=== PATIENT | female | born 1935 | race Caucasian/White ===

== ENCOUNTER 2018-06-23 09:30 | Outpatient (RCR) | payer MEDICARE, SELFPAY ==
--- NOTE | 2018-05-28 10:30 | PTTR_ITS ---
DATE: 05/28/18 SUBJECTIVE: Olga states that her back has been feeling much better. Has been ambulating in the house without use of her cane now. Did alot of walking while she was [place] last weekend. Is complaining of some swelling in the L calf with pain in L calf. The patient discontinued her press ups secondary to question whether this caused her calf symptoms OBJECTIVE: Upon re-check, the patient is noted to have significant swelling in the calf on the L. (-) redness or increased heat coming from the back of calf, or popliteal fossa region. Does have pain with heel cord stretch. Also discomfort with unilateral heel raise. (-) dural tension testing with SLR today. Ultrasound [id number]: Performed 3 mhz, continuous 1.0w/cm2 to the L piriformis, glut med 8 mins in prone followed by Manual therapy: (60169r5). PA mobilizations, rotational segmental mobilizations grades 3 and 4 from L1-L5 sacral decompression followed by soft tissue mobilization L lumbar paraspinals followed by Mulligan style SLR and manual distraction via leg pulls on the L. Told her to resume prone press ups as this is likely not causing the calf swelling. * x Electrical Stim Unattended - 02203: with cryotherapy to low back for 15 mins. Direct treatment time: 45 mins Total treatment time: 60 mins A: Questionable calf strain resulting in mild swelling in the calf. Does not appear to be a blood clot. She is taking baby aspirin. Symptoms likely stemming from increasing her walking activities. Will certainly need to continue monitoring this though for pain and increased edema. Overall she is moving through the clinic with less pain and less pain behaviors. Is able to ambulate to the treatment room without use of her cane. P: Continue as above. MM/dl
--- NOTE | 2018-05-31 15:44 | PTTR_ITS ---
DATE: 05/31/18 SUBJECTIVE: Olga continues to complain of left calf parathesias. Reports a significant reduction in buttock pain on the left, and feels as though P.T. has been quite beneficial. We discussed potentially having another injection at [facility]. OBJECTIVE: Manual therapy: (78928q4). Lumbopelvic mobilization using longitudinal leg distraction and Mulligan style SLR. PA mobilizations in prone as well as lumbopelvic mobilizations into hip flexion in right side lying. Then performed facet gapping techniques in modified QL stretch position. * [x] Electrical Stim Unattended - 61358b0: applied x15 minutes to the low back in right side lying. * [x] Ultrasound - (x [8] mins) - 64318d[1]: applied @1 megahertz 1.0 watt per cm sq continuous ultrasound to the left glute medius and piriformis Direct treatment time: 10:45 til 11:30 A.M. Plan: Continue as indicated above. MM/gc
--- NOTE | 2018-06-02 09:30 | PTTR_ITS ---
DATE: 06/02/18 Co-treat with supervising PT, Levon Murillo. OBJECTIVE: Manual therapy: (63701v6). Mobilization of left low back and buttock soft tissue while in right side lying with pillow between knees and under head. Utilized tendon massage to the lumbar vertebrae, iliac crest, sacral border and posterior greater trochanter. TPM to left piriformis, gluts and QL. * x Electrical Stim Unattended - 63273d0: Ended session with IFC and spot cold to left low back / buttock with global MHP to surrounding tissue x 15 minutes while in right side lying. Direct treatment time: 15 minutes Total treatment time: 30 minutes, post time spent with supervising PT.
--- NOTE | 2018-06-02 13:44 | PTTR_ITS ---
DATE: June 02, 2018 Reporting period: 04/29/18 til 06/02/18 Referring physician: Ailin Bradley NP SUBJECTIVE: Olga states her calf is a little sorer as is the lateral hamstring on the left leg today. Woke up with this increase in symptoms yesterday, making it difficult for her to do any press ups secondary to intensifying leg pain. Standardized measures: 46% on the MOLBPQ. OBJECTIVE: The patient has decreased calf strength myotomally of L5/S1 level. She is able to heel walk independently and has good toe extension. (+) dural tension testing noted with SLR at 45 . This is alleviated with manual distraction. Increased tenderness with palpation of the piriformis and lateral sacral border on the left. Manual therapy: (05152n5). PA mobs at Grades 2 and 3. These were discontinued secondary to symptom exacerbation, particularly at L3/4 and L5. Tried prone press ups, but she had increased calf pain so elected to hold on this, just sticking with prone on elbows, which she tolerated well. Did perform manual distraction techniques and Mulligan style SLR with good tolerance. * [x] Ultrasound - (x [8] mins) - 76494k[1]: applied @1 megahertz 1.0 watt per cm sq continuous to the left glute medius and piriformis Direct treatment time: 9:00 til 9:30 A.M. Soft tissue mobs were then performed by the SINGLE WIRE SAW OPERATOR. For details see her note. Assessment: ST: Decrease radicular symptoms by 50% - met 2: Patient independent in a HEP - met 3: Patient ambulating community distance without 4 wheeled walker - met LT: Return to premorbid level of functions * 2: Return to full, pain-free, functional mobility * *Still working toward these goals, they have not been achieved. She is progressing toward these goals. GCodes: Mobility, i.e. walking and moving around with a present status of GPG 8978 CK and a projected goal of GPG 8979 CJ. Plan: Continue as indicated above. She will schedule a follow up with [facility] for a possibility of another injection. MM/gc
--- NOTE | 2018-06-07 13:24 | PTTR_ITS ---
DATE: 06/07/18 SUBJECTIVE: Olga reports she is becoming frustrated with her continued left LE sciatica. Admits that her buttock pain has virtually subsided. Is seated comfortably, as this tends to be her position of comfort. Has discontinued the press ups, secondary to symptom exacerbation. OBJECTIVE: Therapeutic procedures ([id number]). * x See flow sheet: progressed from an extension approach to a flexion based program as the extensions were exacerbating her symptoms, causing more radicular peripheralization. She is scheduled for a consultation at [facility] on . Instructed her in single/double knee to chest, bent knee fall outs as well as TA activation. * She then rec'd soft tissue mobs performed by the AUDIO VISUAL TECH. For details see her note. * [x] Ultrasound - (x 8 mins) - 50342x6: applied @1 megahertz 1.0 watt per cm sq cont to the left piriformis and glute medius Direct treatment time: 1:00 til 1:30 P.M. Assessment: I do feel its time to seek further consultation, as she is approaching 6 wks of P.T. Has made good gains with her buttock discomfort, but is still having significant radicular symptoms with regards to altered sensation / pressure pain, as well as myotomal loss of heel raise with gastroc soleus complex. I do recommend she consults with [facility] after her 2nd session for injection at [facility]. 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 She has (-) discogenic testing for right side, however still (+) SLR on the left. MM/gc
--- NOTE | 2018-06-07 13:30 | PTTR_ITS ---
DATE: 06/07/18 Co-treat with supervising PT, Levon Murillo. OBJECTIVE: Manual therapy: (37570r1). Performed STM to low back and left buttock while in right side lying. This included tendon massage along the lower thoracic / lumbar vertebrae, iliac crest , sacral border and posterior greater trochanter. TPM to gluts, piriformis and QL on the left. Did complain of radiating sensation in the left calf region once while receiving TPM to glut max region, so positioning was modified to avoid this. Therapeutic procedures (62944q1). * x HEP review: Instructed in transverse abdominis activation. Able to perform this exercise appropriately while in clinic. Given written instructions, see copy in file. * x Electrical Stim Unattended - 15896q1: Ended session with IFC and spot cold to left low back and buttock with global MHP x 15 minutes while in right side lying. Direct treatment time: 20 minutes Total treatment time: 35 minutes, post time spent with supervising PT.
--- NOTE | 2018-06-11 13:00 | PTTR_ITS ---
DATE: 06/11/18 SUBJECTIVE: Olga states she is holding up fairly well. Has been continuing to struggle with her radicular symptoms in the calf. Overall, buttock pain is reduced by 60%. Still has difficulty with prolonged standing and walking. Sitting is her position of choice. Ultrasound 24845d4: performed 3 mhz, 1.0 w/cm2 to the L gluts followed by Manual therapy: (48730j7). Manual distraction via leg pulls to L LE, Mulligan style SLR and some lumbar flexion mobilization in R sidelying position. She then received continued soft tissue work with Racquel Cisneros PTA (see her note for specifics) Direct treatment time: 30 mins Total treatment time: 30 mins P: Continue progressing her strengthening via postural stab and cardiovascular exercise with NuStep and some hip stabilization exercise. MM/dl
--- NOTE | 2018-06-11 13:30 | PTTR_ITS ---
DATE: 06/11/18 co-treat with primary PT Levon Murillo, PT,DPT (see his note for specifics) Manual therapy: (64623i2). Did review TA activation in supine position with Olga. States she has been performing this exercise at home as instructed at last session. Was able to properly demonstrate this exercise while in hook lying today, but does have a difficult time staying in hook lying position due to L LE becoming uncomfortable after a short period of time. States she also has been performing this exercise in seated position which is more comfortable for her. Did receive soft tissue mobilization throughout the L low back/buttock region while in R sidelying with pillow under head and in between knees. This did include tendon massage along the lower thoracic, lumbar vertebra, iliac crest, L sacral border and posterior greater troch. No complaints of radiating discomfort with palpation throughout these areas today. Did perform trigger point work to the gluteus med region and piriformis as well as cross friction to the L lower thoracic, lumbar paraspinals. * x Electrical Stim Unattended - 61759: spot cold to the L buttock with global moist heat to the low back while in R sidelying position x15 mins. Direct treatment time: 30 mins Total treatment time: 45 mins SG/dl
--- NOTE | 2018-06-16 14:00 | PTTR_ITS ---
DATE: 06/16/18 SUBJECTIVE: Utilizing topical cream and taking Tylenol to sleep at night. Thinks the swelling in her left leg has been less and is walking in her house without the cane now. Still using it for community ambulation. Plans to try to dance at her grandson's wedding this weekend regardless of pain. Is frustrated with pain limiting the things she likes to do. Is a waiting [facility] appt. Hoping this will take away the left hip pain that is now running down into the mid hamstring/ lateral thigh region. No longer staying in the calf region, but does get the electrical sensation in this region occasionally. Is using a TENS unit at home now a couple times per day and this seems to help. OBJECTIVE: Ultrasound (65987j 1) : Performed ultrasound at 3 mHz at 1.0 w/cm2 x 8 minutes to left glut region while in right side lying position. Manual therapy: (42720y8). Mobilization of left low back and buttock region while in right side lying consisting of tendon massage along the lower thoracic / lumbar vertebrae, iliac crest and sacral border, CFM to bilateral paraspinals an TPM to left QL, gluts and piriformis. Utilized fascial stretching throughout the LQ and glut regions which patient indicates offers her good relaxation of tissue. Therapeutic procedures (31988z6). * x HEP review: Instructed in TA activation for 30 seconds each while in varying positions (supine, seated and standing against wall with knees slightly flexed), Marching with TA activation and arm raises from 0 to 90 degrees with TA activation. Given written instructions for each of these exercises, see copy in patient's file. * x Provided skilled instruction in proper exercise performance * x Provided skilled manual cues to facilitate proper muscle recruitment and/ or movement pattern * x Electrical Stim Unattended - 34567q4: Ended session with IFC and cryotherapy x 15 minutes to low back and left hip while in right side lying with pillow between knees and under head. Left dept without use of cane, indicating she had minimal discomfort. Direct treatment time: 40 minutes Total treatment time: 55 minutes
--- NOTE | 2018-06-18 08:30 | PTTR_ITS ---
DATE: 06/18/18 SUBJECTIVE: Indicated the irritation is still just to her mid thigh when uncomfortable. Has some cramping in thigh last night but was able to fall asleep with meds and awoke without cramp until she stood up to walk. Goes away if she walks around. OBJECTIVE: * x Ultrasound - (x 8 mins) - 48090l9: Began session with ultrasound to left glut / piriformis region x 8 minutes at 3 mHz at 1.0 w/cm2. * Manual therapy: (29817m5). Mobilization of low back included leg pull on left while in supine and transition to right side lying for soft tissue mobilization throughout the low back and left buttock. Performed tendon massage along the lumbar vertebrae, iliac crest and sacral border, CFM to lumbar paraspinals and light TPM to left QL and gluts. Ended with fascial stretching throughout the low back and left buttock. * x Electrical Stim Unattended - 34382z1: Ended session with IFC and cryotherapy to low back and left buttock region x 15 minutes at no charge. Direct treatment time: 30 minutes Total treatment time: 45 minutes
--- NOTE | 2018-06-23 09:30 | PTTR_ITS ---
DATE: 06/23/18 SUBJECTIVE: Olga reports that she misstepped while walking backwards while holding onto her 2 year old grand daughter and fell onto L hip. Was a little sore in her hip, but does not feel as though it exacerbated her back pain. Continues to complain of calf discomfort, which limits her ability to walk. Still feels as though sitting is her position of comfort, and walking, standing are symptom aggravators. Manual therapy: (10603e3). Lumbopelvic mobilization into flexion, single/ double knee to chest, and facet gapping techniques in R sidelying. Also performed some grade 2-3 PA mobilizations to the lumbar spine, PRT's to L glut. Did hold off on US today. She ended with e-stim and cryotherapy to the low back for 15 mins in prone. * Electrical Stim Unattended - 08026: Direct treatment time: 40 mins Total treatment time: 40 mins A: Still significant myotomal loss of the L calf, heel raise, S1 level. Do feel it would be appropriate for her to follow up with pain clinic, which she is scheduled to see in another few weeks. At this point, will continue as above and progress with advancing her postural stabilization program. MM/dl
== END 2018-06-25 23:59 | disposition home or self-care (01) ==
LOC: PT 09:30
PROVIDERS: PCP Nurse Practitioner; Referring Provider Nurse Practitioner; Visit Provider Nurse Practitioner
DX: M54.5 Low back pain (principal); M54.16 Radiculopathy, lumbar region
CPT/HCPCS: 97014; 97035; 97110; 97140; G8978

== ENCOUNTER 2018-07-05 10:01 | Outpatient (CLI) | payer MEDICARE, SELFPAY ==
--- NOTE | 2018-07-01 13:55 | DI.US_ITS ---
SYMPTOMS/DIAGNOSIS: LT CALF PAIN, SWELLING, M79.66 LEFT LOWER EXTREMITY ULTRASOUND: There is a superficial vein in the mid calf which shows a somewhat thickened wall. Blood flow is demonstrated through this area. The findings are consistent with superficial phlebitis. The deep venous system appears intact. No thrombus is visible. The doppler venous wave form augments normally. IMPRESSION: Superficial thrombophlebitis involving a calf vein. Mild calf edema is also seen. There is no drainable fluid collection.
== END 2018-07-05 10:21 ==
PROVIDERS: PCP Nurse Practitioner; Visit Provider Nurse Practitioner
DX: R22.42 Localized swelling, mass and lump, left lower limb (principal); M79.662 Pain in left lower leg
CPT/HCPCS: 93971

== ENCOUNTER 2018-12-01 13:03 | Outpatient (REF) | payer MEDICARE, SELFPAY ==
[2018-12-01 19:49] LABS: HCT 39.7 % (36.0-46.0); HGB 12.8 g/dL (12.0-15.5); Mean Corp. HGB Concentration 32.2 g/dL (32.0-36.0); Mean Corpuscular Hemoglobin 29.2 pg (27.0-33.0); Mean Corpuscular Volume 90.6 fL (80-95); Mean Platelet Volume 10.3 fL (8.0-11.0); Platelet Count 192 x1000/uL (130-400); RBC 4.38 m/cumm (4.00-5.20); RBC Distribution Width 13.8 % (11.7-14.6); White Blood Cell Count 4.51 k/cumm (4.4-10.8)
[2018-12-01 20:34] LABS: ALT 12 U/L (12-78); AST 24 U/L (15-37); Albumin 3.8 g/dL (3.4-5.0); Alkaline Phosphatase 109 U/L (46-116); Anion Gap 5.7 mmol/L (3-11); BUN 23 mg/dL (7-18); Bilirubin, Total 0.3 mg/dL (0.2-1.0); CO2 31.3 mmol/L (21.0-32.0); Calcium 8.9 mg/dL (8.5-10.1); Chloride 103 mmol/L (98-107); Estimated GFR 59.94 (mL/min/1.73m2); Glucose 103 mg/dL (70-100); Potassium 4.1 mmol/L (3.5-5.1); Sodium 140 mmol/L (136-145); TSH (W/Ref FT4) 0.98 uIU/mL (0.358-3.74); Total Protein 7.2 g/dL (6.4-8.2)
== END 2018-12-01 13:23 ==
LOC: NCHCN 13:03
PROVIDERS: PCP Nurse Practitioner; Visit Provider Nurse Practitioner
DX: I10 Essential (primary) hypertension (principal); R55 Syncope and collapse
CPT/HCPCS: 80053; 85027; 84443

== ENCOUNTER → 2019-06-22 08:13 | Outpatient (BNVA) | payer MEDICARE, SELFPAY | PROVIDERS: PCP Nurse Practitioner; Referring Provider Nurse Practitioner; Visit Provider Psychiatry & Neurology Neurology | DX: M54.16 Radiculopathy, lumbar region (principal); M51.26 Other intervertebral disc displacement, lumbar region; M54.32 Sciatica, left side; I10 Essential (primary) hypertension | CPT/HCPCS: 99205; 99215 ==

== ENCOUNTER → 2019-08-16 10:04 | Outpatient (BNVA) | payer MEDICARE, SELFPAY | PROVIDERS: PCP Nurse Practitioner; Referring Provider Nurse Practitioner; Visit Provider Psychiatry & Neurology Neurology | DX: M54.16 Radiculopathy, lumbar region (principal); M51.26 Other intervertebral disc displacement, lumbar region; M54.32 Sciatica, left side; I10 Essential (primary) hypertension | CPT/HCPCS: 99213 ==

== ENCOUNTER 2019-12-27 10:43 | Outpatient (REF) | payer MEDICARE, SELFPAY ==
[2019-12-27 19:04] LABS: ALT 11 U/L (14-59); AST 27 U/L (15-37); Albumin 3.9 g/dL (3.4-5.0); Alkaline Phosphatase 105 U/L (46-116); Anion Gap 7.7 mmol/L (3-11); BUN 20 mg/dL (7-18); Bilirubin, Total 0.5 mg/dL (0.2-1.0); CO2 29.3 mmol/L (21.0-32.0); CREATININE 0.81 mg/dL (0.55-1.02); Calcium 9.3 mg/dL (8.5-10.1); Calculated LDL 149 mg/dL (<100); Chloride 105 mmol/L (98-107); Cholesterol 229 mg/dL (<200); Glucose 104 mg/dL (74-106); HDL Cholesterol 48 mg/dL (40-60); Potassium 4.3 mmol/L (3.5-5.1); Sodium 142 mmol/L (136-145); Total Protein 7.1 g/dL (6.4-8.2); Triglyceride 160 mg/dL (<150)
== END 2019-12-27 11:03 ==
LOC: NCHCN 10:43
PROVIDERS: PCP Nurse Practitioner; Visit Provider Nurse Practitioner
DX: I10 Essential (primary) hypertension (principal); E78.5 Hyperlipidemia, unspecified
CPT/HCPCS: 80053; 80061

== ENCOUNTER 2020-12-20 22:17 | Outpatient (REF) | payer MEDICARE, SELFPAY ==
[2020-12-20 15:43] LABS: ALT 13 U/L (14-59); AST 26 U/L (15-37); Albumin 3.8 g/dL (3.4-5.0); Alkaline Phosphatase 98 U/L (46-116); Anion Gap 9.5 mmol/L (3-11); BUN 27 mg/dL (7-18); Bilirubin, Total 0.4 mg/dL (0.2-1.0); CO2 27.5 mmol/L (21.0-32.0); CREATININE 0.8 mg/dL (0.55-1.02); Calcium 9.2 mg/dL (8.5-10.1); Calculated LDL 149 mg/dL (<100); Chloride 104 mmol/L (98-107); Cholesterol 216 mg/dL (<200); Glucose 93 mg/dL (74-106); HDL Cholesterol 45 mg/dL (40-60); Potassium 4.5 mmol/L (3.5-5.1); Sodium 141 mmol/L (136-145); Total Protein 7.1 g/dL (6.4-8.2); Triglyceride 114 mg/dL (<150)
== END 2020-12-20 22:18 | disposition home or self-care (01) ==
LOC: NCHCN 22:17
PROVIDERS: PCP Nurse Practitioner; Visit Provider Nurse Practitioner
DX: I10 Essential (primary) hypertension (principal); E78.5 Hyperlipidemia, unspecified
CPT/HCPCS: 80053; 80061

== ENCOUNTER 2021-09-02 14:56 | Outpatient (REF) | payer MEDICARE, SELFPAY ==
[2021-09-04 15:46] LABS: COVID-19 RT-PCR UVMMC Result Positive (Negative)
== END 2021-09-02 14:57 | disposition home or self-care (01) ==
LOC: NCHCN 14:56
PROVIDERS: PCP Nurse Practitioner; Visit Provider Physician Assistant
DX: Z20.822 Contact with and (suspected) exposure to COVID-19 (principal); J06.9 Acute upper respiratory infection, unspecified
CPT/HCPCS: U0003

== ENCOUNTER 2021-09-06 01:43 | Outpatient (CLI) | payer MEDICARE, SELFPAY ==
[2021-09-06 08:15] VITALS: BP 146/74; PULSE 70; RESP 12; TEMP 36; O2SAT 99
[2021-09-06] MEDS: Normal Saline Flush 10 ML SYR IVP (08:30)
[2021-09-06] MEDS: Normal Saline 500 ML 30 ML IV (09:00)
[2021-09-06 09:20] VITALS: BP 137/78; PULSE 70; TEMP 37.7; O2SAT 99
[2021-09-06 09:40] VITALS: BP 152/77; PULSE 70; RESP 14; TEMP 38.2; O2SAT 99
[2021-09-06 10:30] VITALS: BP 161/80; PULSE 52; TEMP 36.9; O2SAT 98
== END 2021-09-06 01:44 | disposition home or self-care (01) ==
LOC: INF 01:49
PROVIDERS: PCP Nurse Practitioner; Visit Provider Family Medicine
DX: U07.1 COVID-19 (principal)
CPT/HCPCS: 96365

== ENCOUNTER 2021-09-23 00:12 | Outpatient (CLI) | payer MEDICARE, SELFPAY ==
--- NOTE | 2021-09-23 08:00 | DI.US_ITS ---
Exam(s) US ABDOMEN EXAM: US ABDOMEN CLINICAL HISTORY: RUQ ABD PAIN, R10.11,? GB DISEASE TECHNIQUE: Ultrasound of complete upper abdomen performed using standard protocol. COMPARISON: US US LOWER EXTREMITY VASCULAR LT from 07/01/2018 FINDINGS: There is no ascites evident. LIVER: There are no hepatic lesions evident nor obvious dilatation of intrahepatic ducts. GALLBLADDER/BILIARY: There are no gallstones. No gallbladder wall edema nor pericholecystic fluid. The common hepatic duct isnot dilated, measuring 2mm at the level of char hepatis. PANCREAS: There is no evidence of pancreatic mass nor dilatation of the pancreatic duct. SPLEEN: The spleen is not enlarged and there are no intrasplenic lesions evident. KIDNEYS:Kidneys exhibit normal size with no evidence of solid mass, calculus, nor hydronephrosis. No cortical cysts evident. ABDOMINAL AORTA: There is no evidence of abdominal aortic aneurysm. IVC: Normal diameter where visualized. IMPRESSION: 1. No evidence of cholelithiasis nor dilatation of the biliary tree. 2. No other significant ultrasound findings in the upper abdomen. 3. There is no ascites. DATA REPOSITORY:
== END 2021-09-23 00:32 ==
PROVIDERS: PCP Nurse Practitioner; Visit Provider Nurse Practitioner
DX: R10.11 Right upper quadrant pain (principal)
CPT/HCPCS: 76700

== ENCOUNTER 2022-08-07 14:20 | Outpatient (REF) | payer MEDICARE, SELFPAY ==
[2022-08-07 15:42] LABS: ALT 14 U/L (14-59); AST 33 U/L (15-37); Albumin 3.9 g/dL (3.4-5.0); Alkaline Phosphatase 101 U/L (46-116); Anion Gap 8.2 mmol/L (3-11); BUN 19 mg/dL (7-18); Bilirubin, Total 0.2 mg/dL (0.2-1.0); CO2 26.8 mmol/L (21.0-32.0); CREATININE 0.8 mg/dL (0.55-1.02); Calcium 9.1 mg/dL (8.5-10.1); Calculated LDL 87 mg/dL (<100); Chloride 104 mmol/L (98-107); Cholesterol 181 mg/dL (<200); Estimated GFR 71.71 (mL/min/1.73m2); Glucose 105 mg/dL (74-106); HDL Cholesterol 59 mg/dL (40-60); Potassium 4.6 mmol/L (3.5-5.1); Sodium 139 mmol/L (136-145); Total Protein 7.8 g/dL (6.4-8.2); Triglyceride 176 mg/dL (<150)
== END 2022-08-07 14:21 | disposition home or self-care (01) ==
LOC: NCHCN 14:20
PROVIDERS: PCP Nurse Practitioner Family; Visit Provider Nurse Practitioner Family
DX: I10 Essential (primary) hypertension (principal); E78.5 Hyperlipidemia, unspecified; K21.9 Gastro-esophageal reflux disease without esophagitis; M54.16 Radiculopathy, lumbar region
CPT/HCPCS: 80053; 80061

== ENCOUNTER 2023-02-19 17:38 | Outpatient (REF) | payer MEDICARE, SELFPAY ==
[2023-02-19 16:13] LABS: Bilirubin Negative (Negative); Blood Moderate (Negative); Clarity Cloudy (Clear); Glucose Negative (Negative); Ketones Negative (Negative); Leukocyte Esterase Trace (Negative); Nitrite Positive (Negative); Specific Gravity >= 1.030 (1.005-1.025); Urobilinogen 0.2 mg/dL (Up to 0.2); pH 5.5 (5-8)
[2023-02-19 16:29] LABS: Bacteria Many HPF (Negative); C & S Indicated? Yes; Casts Negative LPF (Negative); Crystals Negative HPF (Negative); Epithelial Cells Few HPF (Negative); Mucus Moderate (Negative); Other Cells Few Transitional (Negative); RBC 0-2 HPF (0-2)
== END 2023-02-19 17:39 | disposition home or self-care (01) ==
LOC: NCHCN 17:38
PROVIDERS: PCP Nurse Practitioner Family; Visit Provider Nurse Practitioner Family
DX: R39.89 Other symptoms and signs involving the genitourinary system (principal); R82.998 Other abnormal findings in urine
CPT/HCPCS: 87077; 81003; 81015; 87086; 87186

== ENCOUNTER → 2023-04-06 13:02 | Outpatient (BNVA) | payer MEDICARE, SELFPAY | PROVIDERS: PCP Nurse Practitioner Family; Referring Provider Nurse Practitioner Family; Visit Provider Urology | DX: R31.9 Hematuria, unspecified (principal); R39.89 Other symptoms and signs involving the genitourinary system | CPT/HCPCS: 51798; 81003; 99205 ==

== ENCOUNTER 2023-09-02 20:20 | Outpatient (REF) | payer MEDICARE, SELFPAY ==
[2023-09-02 20:08] LABS: ALT 11 U/L (14-59); AST 24 U/L (15-37); Albumin 3.9 g/dL (3.4-5.0); Alkaline Phosphatase 80 U/L (46-116); Anion Gap 8.6 mmol/L (3-11); BUN 16 mg/dL (7-18); Bilirubin, Total 0.3 mg/dL (0.2-1.0); CO2 30.4 mmol/L (21.0-32.0); CREATININE 0.8 mg/dL (0.55-1.02); Calcium 9.3 mg/dL (8.5-10.1); Calculated LDL 124 mg/dL (<100); Chloride 101 mmol/L (98-107); Cholesterol 192 mg/dL (<200); Estimated GFR 71.27 (mL/min/1.73m2); Glucose 105 mg/dL (74-106); HDL Cholesterol 42 mg/dL (40-60); Sodium 140 mmol/L (136-145); Total Protein 7.7 g/dL (6.4-8.2); Triglyceride 130 mg/dL (<150)
[2023-09-02 20:19] LABS: Iron 62 ug/dL (50-170); Total Iron Binding Capacity 336 ug/dL (250-450); Transferrin Sat 18 % (15-50)
== END 2023-09-02 20:21 | disposition home or self-care (01) ==
LOC: NCHCN 20:20
PROVIDERS: PCP Nurse Practitioner Family; Visit Provider Nurse Practitioner Family
DX: I10 Essential (primary) hypertension (principal); R05.8 Other specified cough; E78.5 Hyperlipidemia, unspecified; N32.81 Overactive bladder; G47.9 Sleep disorder, unspecified; Z86.69 Personal history of other diseases of the nervous system and sense organs
CPT/HCPCS: 80053; 80061; 83540; 83550

== ENCOUNTER 2024-12-22 10:13 | Outpatient (REF) | payer MEDICARE, SELFPAY ==
[2024-12-22 15:26] LABS: Anion Gap 9.5 mmol/L (3-11); BUN 26 mg/dL (7-18); CO2 29.5 mmol/L (21.0-32.0); CREATININE 0.8 mg/dL (0.55-1.02); Calcium 9.3 mg/dL (8.5-10.1); Chloride 105 mmol/L (98-107); Estimated GFR 70.83 (mL/min/1.73m2); Glucose 108 mg/dL (74-106); Sodium 144 mmol/L (136-145)
== END 2024-12-22 10:14 | disposition home or self-care (01) ==
LOC: NCHCN 10:13
PROVIDERS: PCP Nurse Practitioner Family; Visit Provider Nurse Practitioner Family
DX: I10 Essential (primary) hypertension (principal)
CPT/HCPCS: 80048

== ENCOUNTER 2025-06-07 14:54 | Outpatient (REF) | payer MEDICARE, SELFPAY ==
[2025-06-07 15:31] LABS: HCT 40.1 % (36.0-46.0); HGB 13.1 g/dL (11.2-15.7); MCH 28.3 pg (27.0-33.0); MCHC 32.7 % (32.0-36.0); MCV 87 fL (80-95); MPV 10.2 fL (8.0-11.0); Platelet Count 205 10^3/uL (130-400); RBC 4.63 10^6/uL (3.93-5.22); RDW 14.1 % (11.7-14.6); RDW-SD 44.5 fL; WBC 3.87 10^3/uL (4.4-10.8)
[2025-06-07 16:53] LABS: ALT 10 U/L (14-59); AST 26 U/L (15-37); Albumin 3.9 g/dL (3.4-5.0); Alkaline Phosphatase 87 U/L (46-116); Anion Gap 10.5 mmol/L (3-11); BUN 24 mg/dL (7-18); Bilirubin, Total 0.5 mg/dL (0.2-1.0); CO2 26.5 mmol/L (21.0-32.0); Calcium 9.5 mg/dL (8.5-10.1); Chloride 104 mmol/L (98-107); Estimated GFR 54.19 (mL/min/1.73m2); Glucose 118 mg/dL (74-106); NT-proBNP 108 pg/mL (<300); Potassium 4.3 mmol/L (3.5-5.1); Sodium 141 mmol/L (136-145); Total Protein 7.9 g/dL (6.4-8.2)
== END 2025-06-07 14:55 | disposition home or self-care (01) ==
LOC: NCHCN 14:54
PROVIDERS: PCP Nurse Practitioner Family; Visit Provider Nurse Practitioner Family
DX: R01.1 Cardiac murmur, unspecified (principal)
CPT/HCPCS: 80053; 85027; 83880

== ENCOUNTER 2025-07-03 09:09 | Outpatient (CLI) | payer MEDICARE, SELFPAY ==
--- NOTE | 2025-07-03 09:00 | RT.EKG_ITS ---
APPROVED REPORT Exam: Resting ECG Reason for Exam: SYSTOLIC MURMUR Patient Location: O HR:65 bpm ECG Measurements Heart Rate 65 AXIS MT 186 P 61 QRSd 132 QRS 46 QT 452 T 4 QTc 470 Conclusion Sinus rhythm...normal P axis, V-rate 50- 99 Left bundle branch block...QRSd>120, broad/notched R
== END 2025-07-03 09:10 | disposition home or self-care (01) ==
PROVIDERS: PCP Nurse Practitioner Family; Visit Provider Nurse Practitioner Family
DX: R01.1 Cardiac murmur, unspecified (principal)
CPT/HCPCS: 93005; 93010

== ENCOUNTER 2025-07-10 00:35 | Outpatient (CLI) | payer MEDICARE, SELFPAY ==
--- NOTE | 2025-07-10 13:30 | DI.US_ITS ---
APPROVED REPORT EXAM: Comprehensive 2D, Doppler, and color-flow Echocardiogram Patient Location: Out-Patient Floor Covering Layer: Javan Hall RDCS (AE) Indications: Murmur, SOB, fatigue Other Information Study Quality: Fair Conclusion Mild concentric left ventricular hypertrophy. Ejection fraction is 60 to 65%. Wall motion is normal Normal right ventricular size and function Both atria are normal in size Aortic valve is mildly sclerotic and trileaflet with trace regurgitation Estimated right ventricular systolic pressure is 29 mmHg Borderline dilated ascending aorta 3.47 cm Wall motion Left Ventricle The left ventricle is normal size. The left ventricular systolic function is normal. The left ventricular ejection fraction is within the normal range. Mild concentric left ventricular hypertrophy There is normal LV segmental wall motion. There is no ventricular septal defect visualized. LVEF is 60-65%. Right Ventricle The right ventricle is normal size. The right ventricular systolic function is normal. Atria The left atrium size is normal. The right atrium size is normal. The interatrial septum is intact with no evidence for an atrial septal defect. Aortic Valve The aortic valve is mildly sclerotic. Aortic valve is trileaflet. There is no aortic valvular stenosis. Trace aortic regurgitation. Mitral Valve The mitral valve is normal in structure. No evidence of mitral valve stenosis. There is no mitral valve regurgitation noted. Tricuspid Valve The tricuspid valve is normal in structure. There is no tricuspid valve stenosis. Trace to mild tricuspid regurgitation. The RVSP is 29.2 mmHg. Pulmonic Valve The pulmonary valve is normal in structure. There is no pulmonic valvular stenosis. There is no pulmonic valvular regurgitation. Great Vessels The aortic root is normal in size. The ascending aorta is mildly dilated. IVC is normal in size and collapses >50% with inspiration. Pericardium There is no pericardial effusion. 2D Dimensions IVSD d PLAX 1.23 cm F: 0.6-1.0 Ao Root d 2.54 cm F: 2.7 - 3.3 LVPW d PLAX 0.59 cm F: 0.6 - 1.0 Ao Asc Diam d 3.47 cm F: 2.3 - 3.1 LVID d PLAX 4.68 cm F: 3.8 - 5.2 LVDs 3.20 cm F: 2.2 - 3.5 LV EF Teichholz 59.7 % FS 31.70 % LV EDV (Teich) 101.4 mL LV ESV (Teich) 40.9 mL Stroke Vol Index (Teich) 40.61 M-Mode TAPSE 2.13 cm (M/F) >1.7 Auto EF LV EDV A4C 67.0 mL LV EDV A2C 67.4 mL LV EDV BP 69.2 mL LV ESV A4C 27.1 mL LV ESV A2C 25.4 mL LV ESV BP 26.6 mL LVEF(%) A4C 59.6 % LVEF(%) A2C 62.3 % LVEF(%) BP 61.6 % LV SV A4C 40.0 ml LV SV A2C 42.0 ml LV SV BP 42.6 ml LV CO A4C 2.8 L/min LV CO A2C 2.4 L/min LV CO BP 2.6 L/min HR A4C 69.90 BPM HR A2C 56.52 BPM LV EDV Index (BP) LA Volume LA Length A4C 4.9 cm LA Length A2C 4.8 cm LA Area A4C s 10.05 cm2 LA Area A2C s 9.33 cm2 LA Vol A4C A-L 17.33 mL LA Vol A2C A-L 15.38 mL LA Vol Biplane A-L 16.6 mL LA Vol/BSA A4C A-L LA Vol/BSA A2C A-L LA Vol/BSA BP A-L 11.1 mL/m2 LA Vol A4C MOD 17.2 mL LA Vol A2C MOD 14.6 mL LA Vol BP MOD 15.9 mL RA Volume RA Area A4C 5.7 cm2 RA ESV A4C (A-L) 8.0mL RA Vol/BSA A4C A-L RA Length A4C 3.5 cm RA ESV A4C (MOD) 7.6mL LV Diastology MV E' medial 0.034 (>0.07 m/s) MV E Vmax 0.83 (0.4-1.3 m/s) MV E/E' MED 24.59 (<14) MV A Vmax 0.90 (0.4-1.3 m/s) MV E' lateral 0.049 (>0.1 m/s) E/A Ratio 0.9 MV E/E' LAT 16.95 (<14) MV E' Average 0.042 m/s MV E/E'(average) 20.07 Aortic Valve AoV Vmax 1.84 m/s LVOT Vmax 1.06 m/s AoV Peak Grad 57.8 mmHg LVOT Peak Grad 4.5 mmHg AoV Area (Vmax) 1.44 cm2 LVOT VTI 0.237 m AoV VTI 0.382 m LVOT Mean Grad 2.9 mmHg AoV Mean [place]. 1.29 m/s LVOT SV 59.43 mL AoV Mean Grad 7.6 mmHg LVOT Diam s 1.75 cm AoV Area (VTI) 1.56 cm2 AV Regurg Peak Gr. 13.48 mmHg Velocity Ratio 0.58 AR Decel Towner 2.8m/sec2 AR DT 1826 msec AR PHT 530 msec AR Vmax 5.05 m/s Mitral Valve MV DT 252 (160-240 msec) Pulmonary Valve PV Vmax 0.93 (0.5-1.5 m/s) RVOT Vmax 0.91 m/s PV Peak Grad 3.5 mmHg RVOT Peak Gr. 3.3 mmHg PV Mean [place] 0.63 m/s RVOT VTI 0.153 m PV Mean Grad 1.8 mmHg RVOT Mean Gr. 1.5 mmHg Tricuspid Valve RA Pressure 3.00 mmHg TR Vmax 2.56 m/s TR Peak Grad 26.2 mmHg RVSP (TR) 29.2 mmHg
== END 2025-07-10 00:55 ==
LOC: DI 00:36
PROVIDERS: PCP Nurse Practitioner Family; Visit Provider Internal Medicine Cardiovascular Disease
DX: I51.7 Cardiomegaly (principal); R06.02 Shortness of breath
CPT/HCPCS: 93306

== ENCOUNTER 2025-10-10 10:46 | Outpatient (REF) | payer MEDICARE, SELFPAY ==
[2025-10-10 15:50] LABS: Anion Gap 9 mmol/L (3-11); BUN 22 mg/dL (9-23); CO2 29.0 mmol/L (20.0-31.0); Calcium 9.1 mg/dL (8.3-10.6); Chloride 104 mmol/L (98-107); Glucose 78 mg/dL (74-106); Potassium 4.1 mmol/L (3.5-5.1); Sodium 142 mmol/L (136-145)
== END 2025-10-10 10:47 | disposition home or self-care (01) ==
LOC: NCHCN 10:46
PROVIDERS: PCP Nurse Practitioner Family; Visit Provider Nurse Practitioner Family
DX: M54.17 Radiculopathy, lumbosacral region (principal); M21.372 Foot drop, left foot
CPT/HCPCS: 80048

== ENCOUNTER → 2025-10-16 00:52 | Outpatient (CLI) | payer MEDICARE, SELFPAY ==
--- NOTE | 2025-10-16 | DI.RAD_ITS ---
Exam(s) XR HIP LT COMPLETE AP PELVIS EXAM: XR HIP LT COMPLETE AP PELVIS CLINICAL HISTORY: RADICULOPATHY L SPINE M54.17 LT FOOT DROP M21.372 NEW LT FOOT DROP ?. TECHNIQUE: 2D digital imaging was performed of the left hip. Three views were obtained. AP pelvis and lateral left hip views were obtained. COMPARISON: CR LUMBAR SPINE COMPLETE from 04/06/2018 FINDINGS: BONES: No acute fracture is present. No bony destructive lesion is seen. JOINTS: The patient has bilateral total hip arthroplasties. There are no suspicious lucencies around the orthopedic hardware to suggest loosening. There are degenerative changes seen in the lower lumbar spine in the sacroiliac joints. SOFT TISSUE: Vascular calcifications are present. IMPRESSION: Unremarkable left total hip arthroplasty. DATA REPOSITORY: RADIATION DOSE DELIVERED:
--- NOTE | 2025-10-16 | DI.RAD_ITS ---
Exam(s) XR LUMBAR SPINE COMPLETE EXAM: XR LUMBAR SPINE COMPLETE CLINICAL HISTORY: RADICULOPATHY L SPINE M54.17 LT FOOT DROP M21.372 NEW LT FOOT DROP ?. TECHNIQUE: 2D digital imaging was performed of the lumbar spine. Five images were obtained. AP, lateral, right oblique, left oblique and L5-S1 spot views were obtained. COMPARISON: No exams were available for comparison FINDINGS: BONES: No fracture or destructive lesion. Endplate osteophytes are seen at multiple levels of the lumbar spine. There are degenerative changes of the facets which are most marked at L4-5 and L5-S1. Incidental note is made of a limbus vertebra at L2. Degenerative changes are seen at the sacroiliac joints. DISKS: There is disc space narrowing throughout the lumbar spine. There is a vacuum disc at L5-S1. ALIGNMENT: There is grade 1 spondylolisthesis of L4 on L5. There is no spondylolysis. SOFT TISSUE: Atherosclerotic calcification is seen. The patient has bilateral total hip arthroplasties which are incompletely imaged. 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 DATA REPOSITORY: RADIATION DOSE DELIVERED:
== END ==
LOC: DI 00:52
PROVIDERS: PCP Nurse Practitioner Family; Visit Provider Nurse Practitioner Family
DX: M21.372 Foot drop, left foot (principal); M54.17 Radiculopathy, lumbosacral region
CPT/HCPCS: 72110; 73502